=== PATIENT | male | born 1975 | race Caucasian/White ===

== ENCOUNTER 2023-11-17 19:25 | Outpatient (CLI) | payer MEDICARE, OTHER ==
[~2023-11-17 19:25] MED LIST: ATOR40TA28 PO; LISI-893 PO; METF-1211 PO; OLAN5TAB52 PO
[2023-11-17 21:46] VITALS: BP 109/64; PULSE 109; RESP 18; TEMP 97.5; O2SAT 98
[2023-11-17] MEDS: OLANZapine 7.5 MG TABLET PO SCH (22:28)
[2023-11-18] MEDS: TraZODone HCL 50 MG TABLET PO ONE (03:53)
[2023-11-18 07:46] VITALS: BP 116/74; PULSE 74; RESP 18; TEMP 98.6; O2SAT 98
[2023-11-18] MEDS: SERTRALINE HCL 50 MG TABLET PO SCH (08:50)
[2023-11-18] MEDS: MetFORMIN HCL 500 MG TABLET PO SCH (08:50)
[2023-11-18] MEDS: LISINOPRIL 10 MG TABLET PO SCH (08:50)
[2023-11-18] MEDS ORDERED: OLAN7.5T22 PO (13:49)
[2023-11-18] MEDS ORDERED: ATORVASTATIN CALCIUM 40 MG TABLET PO SCH (21:00)
== END 2023-11-18 11:12 | disposition home or self-care (01) ==
LOC: CSU 19:25 → EDSTATUS 11-25 12:14
PROVIDERS: ATTEND Psychiatry & Neurology Psychiatry
DX: F20.9 Schizophrenia, unspecified (principal); R45.851 Suicidal ideations; Z88.8 Allergy status to other drugs, medicaments and biological substances
CPT/HCPCS: 90839; 90840; Z7610

== ENCOUNTER 2024-03-10 04:14 | Emergency (ER) | payer MEDICARE, OTHER ==
[~2024-03-10] VITALS: Ht 175.3 cm; Wt 92.7 kg
[~2024-03-10 04:14] MED LIST changes: +OLAN7.5T22 PO
[2024-03-10 05:25] VITALS: TEMP 98.5
[2024-03-10 06:04] LABS: BASOPHILS % (AUTO) 0.8 % (0.0-2.0); EOSINOPHILS % (AUTO) 2.7 % (1.0-6.0); HEMATOCRIT 42.9 % (41-53); HEMOGLOBIN 14.5 g/dL (13.5-17.5); LYMPHOCYTES # (AUTO) 2.4 K/uL (1.0-4.8); LYMPHOCYTES % (AUTO) 36.6 % (22.0-44.0); MEAN CORPUSCULAR HEMOGLOBIN 33.1 pg (26.0-34.0); MEAN CORPUSCULAR HGB CONC 33.8 G/dL (31.0-37.0); MEAN CORPUSCULAR VOLUME 98 fL (80-100); MONOCYTES # (AUTO) 0.4 K/uL (0.1-1.0); NEUTROPHILS # (AUTO) 3.5 K/uL (1.8-7.7); NEUTROPHILS % (AUTO) 53.9 % (40.0-70.0); PLATELET COUNT (AUTO) 164 K/uL (150-450); RED BLOOD CELL COUNT(AUTO) 4.38 MIL/uL (4.50-5.90); RED CELL DISTRIBUTION WIDTH 13.1 % (11.5-14.5); WHITE BLOOD COUNT (AUTO) 6.5 K/uL (4.5-11.0)
[2024-03-10 06:08] LABS: ANION GAP 9 mmol/L (8-16); CALCIUM, TOTAL 8.9 mg/dL (8.8-10.5); CARBON DIOXIDE 28 mmol/L (22-29); CHLORIDE 100 mmol/L (98-107); CREATININE 1.17 mg/dL (0.60-1.30); GLOMERULAR FILTR. RATE CALC > 60 mL/min (>60); GLUCOSE,RANDOM 101 mg/dL (70-110); POTASSIUM 3.9 mmol/L (3.5-5.1); SODIUM SERUM 137 mmol/L (136-145); UREA NITROGEN, BLOOD 12 mg/dL (7-18)
[2024-03-10 06:11] LABS: ALCOHOL, BLOOD (SERUM) < 3 mg/dL (0-10)
[2024-03-10] MEDS: KETOROLAC TROMETHAMINE 60 MG/2 ML VIAL IM ONE (07:50)
[2024-03-10 08:20] LABS: COVID AG,FIA SOURCE NASAL SWAB
[2024-03-10 08:52] LABS: SARS-COV2 (COVID) ANTIGEN,FIA Negative (Negative)
[2024-03-10 09:20] VITALS: BP 121/68; PULSE 75; RESP 16; O2SAT 98
[2024-03-10] MEDS: LORazepam 1 MG TABLET PO ONE (09:24)
== END 2024-03-10 09:36 | disposition home or self-care (01) ==
LOC: EMS 04:15
DX: F20.0 Paranoid schizophrenia (principal); Z88.8 Allergy status to other drugs, medicaments and biological substances; Z20.822 Contact with and (suspected) exposure to COVID-19
CPT/HCPCS: 99284; 87426; 80048; 85025; 36415; 93005; 96372; G0480; J1885